=== PATIENT | male | born 1950 | race Caucasian/White ===

== ENCOUNTER → 2024-12-28 09:17 | Outpatient (REF) | payer MEDICARE, OTHER, SELFPAY | LOC: HWRCS 09:17 | PROVIDERS: ATTENDING PHYSICIAN Internal Medicine Cardiovascular Disease; FAMILY PHYSICIAN Internal Medicine | DX: I25.10 Atherosclerotic heart disease of native coronary artery without angina pectoris (principal); R01.1 Cardiac murmur, unspecified | CPT/HCPCS: 93306 ==

== ENCOUNTER 2025-01-27 03:32 | Emergency (ER) | payer MEDICARE, OTHER, SELFPAY ==
[2025-01-27] VITALS (9 sets, daily range): BP systolic 115–130; BP diastolic 74–84; BMI 28.7
[2025-01-27 03:59] LABS: % Basophils 0.3 % (0-2); % Eosinophils 0.3 % (0-6); % Immature Granulocytes 0.6 % (0-0.5); % Lymphocytes 4.4 % (20.5-51.1); % Neutrophils 88.4 % (42.2-75.2); Absolute Immature Granulocytes 0.1 10^3/uL (0-0.05); Absolute Lymphocytes 0.6 10^3/uL (1.2-3.4); Absolute Monocytes 0.9 10^3/uL (0.1-0.6); Absolute Neutrophils 12.8 10^3/uL (1.4-6.5); Hematocrit 50.4 % (39.0-52.0); Mean Corp Hgb Conc. 33.7 g/dL (33.0-37.0); Mean Corpuscular Hgb 31.5 pg (27.0-31.0); Mean Corpuscular Volume 93.5 fL (80.0-94.0); Mean Platelet Volume 10.3 fL (7.4-10.4); Nucleated Red Blood Cells % 0 % (-); Platelet Count 141 10^3/uL (130-400); Red Blood Cell Count 5.39 10^6/uL (4.70-6.10); Red Cell Dist. Width 13.6 % (11.5-14.5); White Blood Cell Count 14.4 10^3/uL (4.8-10.8)
[2025-01-27 04:11] LABS: ALT (SGPT) 42 U/L (0-50); AST (SGOT) 36 U/L (17-59); Albumin 4.8 g/dl (3.5-5.0); Alkaline Phosphatase 71 U/L (38-126); Blood Urea Nitrogen 35 mg/dl (9-20); Calcium 9.5 mg/dl (8.4-10.2); Carbon Dioxide 26 mmol/L (22-30); Chloride 102 mmol/L (98-107); Estimated Creatinine Clearance 66 ml/min; Glucose 180 mg/dl (70-99); Lipase 54 U/L (23-300); Potassium 4.8 mmol/L (3.5-5.1); Sodium 141 mmol/L (135-145); Total Bilirubin 1.7 mg/dl (0.2-1.3); eGFR > 60.00
[2025-01-27 04:14] LABS: COVID-19 Antigen Negative (Negative)
[2025-01-27 04:20] LABS: Troponin I < 0.012 ng/ml
--- NOTE | 2025-01-27 07:17 | ED.GENMED ---
History of Present Illness
General
Chief Complaint: Abdominal Symptoms
Source: patient and spouse
Exam Limitations: none
Time Seen by Provider: 01/27/25 07:05
Nursing documentation reviewed up to this point in time: agreed with
History of Present Illness
History of Present Illness:
74-year-old male with history of HLD, factor V deficiency presents for sudden onset at 11 PM of severe vomiting and retching, diarrhea, according to it was 'so bad he almost passed out.' He also developed severe cramps in his arms and legs to
the point where he could not stand.
Patient states he is feeling better, he still has mild cramps in his legs, he states he vomited numerous times throughout the night and last emesis was about 2 hours ago. His last diarrhea was 2 hours ago. It has been nonbloody.
No known exposures, no recent antibiotic use. No known sick contacts.
He denies fever or chills. Denies chest pain or trouble breathing. He denies abdominal pains.
He feels much better after receiving Zofran by EMS
Past History
Past History
ED Past Medical History: Hypercholesterolemia and Other (Factor V deficiency)
ED Past Surgical History: Orthopedic
Social History
Tobacco: Non-smoker
Alcohol: Occasional
Drug: None
Personal:
Living: with family
Employment: Retired
Review of Systems
Review of Systems
Allergies reviewed?: Yes
All Other Systems: ROS reviewed and negative except as documented in HPI and ROS
Constitutional: Denies fever
Respiratory: Denies trouble breathing
Cardiac: Denies chest pain
ABD/GI: Reports abdominal pain, nausea, vomiting and diarrhea; Denies bloody stools or black stools
: Denies dysuria, frequency or difficulty voiding
Musculoskeletal: Reports other (Cramping in arms and legs)
Skin: Reports no symptoms
Neurological: Reports no symptoms
Phy Exam
Physical Exam
Physical Exam:
GENERAL: No acute distress. A&Ox3.
CONSTITUTIONAL: Afebrile.
EYES: clear, conjunctivae normal
ENMT: moist mucus membranes, Pharynx nl
RESPIRATORY: Regular respirations, nonlabored, lungs clear.
CARDIOVASCULAR: Regular rate and rhythm, no murmurs, no rubs.
GI: Soft, nontender, normal BS
MUSCULOSKELETAL: Moves with ease. Well perfused.
SKIN: Warm, dry, pink
PSYCH: Normal mood and affect. Well kept, interactive and appropriate
NEUROLOGIC: Awake, alert and oriented. No focal neurological deficits
Course
Orders/Labs/Results
Orders:
Orders
01/27/25 03:36
IV Insert/Care/Rem.- Treatment PRN
01/27/25 03:37
Electrocardiogram (*1) Urgent
Reason for Study: Abdominal Pain
EKG- Treatment ONCE
01/27/25 03:43
COVID-19 Antigen Urgent
Source: Nasal Swab
Complete Blood Count/With Diff Urgent
Comprehensive Metabolic Panel Urgent
Lipase Urgent
Troponin I Urgent
Influenza A+B Rapid Molecular Urgent
MCKENZIE Source: Nasal Swab
Specimen Description:
01/27/25 07:26
0.9% Sodium Chloride 1000 ml [Nss] 1,000 ml IV BOLUS
Abnormal Lab Results
01/27/25
03:43
WBC 14.4 H 10^3/uL
(4.8-10.8)
MCH 31.5 H pg
(27.0-31.0)
Abs Immat Gran (auto) 0.1 H 10^3/uL
(0-0.05)
Absolute Neuts (auto) 12.8 H 10^3/uL
(1.4-6.5)
Absolute Lymphs (auto) 0.6 L 10^3/uL
(1.2-3.4)
Absolute Monos (auto) 0.9 H 10^3/uL
(0.1-0.6)
Immature Gran % 0.6 H %
(0-0.5)
Neutrophils % 88.4 H %
(42.2-75.2)
Lymphocytes % 4.4 L %
(20.5-51.1)
BUN 35 H mg/dl
(9-20)
Glucose 180 H mg/dl
(70-99)
Total Bilirubin 1.7 H mg/dl
(0.2-1.3)
01/27/25 03:43
01/27/25 03:43
Vital Signs
Initial and Last Documented VS:
Initial Vital Signs
Temp Pulse Resp BP Pulse Ox
97.8 F 80 16 126/75 99
01/27/25 03:38 01/27/25 03:38 01/27/25 03:38 01/27/25 03:38 01/27/25 03:38
Last Documented Vital Signs
Temp Pulse Resp BP Pulse Ox
97.8 F 78 20 130/76 98
01/27/25 03:38 01/27/25 09:00 01/27/25 09:00 01/27/25 09:00 01/27/25 09:00
MDM/Problems Addressed
Differential Diagnosis Includes:
Viral gastroenteritis, dehydration
MDM/Problems Addressed:
74-year-old male with history of HLD, factor V deficiency presents for sudden onset at 11 PM of severe vomiting and retching, diarrhea, according to it was 'so bad he almost passed out.' He also developed severe cramps in his arms and legs to
the point where he could not stand.
Patient states he is feeling better, he still has mild cramps in his legs, he states he vomited numerous times throughout the night and last emesis was about 2 hours ago. His last diarrhea was 2 hours ago. It has been nonbloody.
No known exposures, no recent antibiotic use. No known sick contacts.
He denies fever or chills. Denies chest pain or trouble breathing. He denies abdominal pains.
He feels much better after receiving Zofran by EMS
EKG NSR
CBC: WBC 14.4 with elevated neutrophils most likely reactive to severe vomiting
CMP: BUN 35 total bili is 1.7 otherwise unremarkable abnormalities most likely due to dehydration and stress of vomiting
Lipase WNL
Troponin WNL
COVID-negative
Flu negative
8:10 a.m.
After IVF's Zofran, pt continues to feel better.
Rx for Zofran sent to his pharmacy
*Critical Care Note
Total Time (30-74mins, 75-104mins- exclusive of procedures): Not Applicable
ED Attending Note
-
Portions of this chart may have been created with voice recognition software.� Occasional wrong word or��sound alike� substitutions may have occurred due to the inherent limitations of voice recognition software.
Discharge Plan
Departure
Patient Disposition: Home (Routine Discharge)
Date of Disposition: 01/27/25
Time of Disposition: 08:55
Patient with high blood pressure during this ER visit?: No
Condition: Good
Discharge Problem:
Gastroenteritis
Instructions: Diarrhea in teens and adults, Viral gastroenteritis in adults, Nausea and Vomiting, Adult (DC)
Prescriptions:
New
ondansetron 4 mg tablet,disintegrating
4 mg PO Q8 4 Days Qty: 12 0RF
No Action
multivitamin Tablet
1 tab PO DAILY
aspirin 81 mg Tablet,Chewable
162 mg PO DAILY
loratadine [Claritin] 10 mg Tablet
10 mg PO DAILY
folic acid 800 mcg Tablet
0.8 mg PO DAILY
rosuvastatin 20 mg Tablet
20 mg PO HS
Vitamin C
2 tab PO DAILY
oxycodone 5 mg tablet
5 mg PO Q6H PRN (Reason: moderate-severe pain) Qty: 30 0RF
Rx Instructions:
1 tab for moderate pain, 2 if severe.
Dx total joint. Ongoing therapy.
ondansetron 4 mg tablet,disintegrating
4 mg PO Q6H PRN (Reason: nausea and vomiting) Qty: 30 0RF
Rx Instructions:
Take 1/2 hour prior to Oxycodone if experiencing recurrent nausea.
mupirocin 2 % ointment
1 applic intranasal BID Qty: 1 0RF
omeprazole 20 mg Tablet,Delayed Release (Dr/Ec)
20 mg PO Q48H
Glucosamine
2 tab PO DAILY
acetaminophen [Acetaminophen Extra Strength] 500 mg tablet
1,000 mg PO Q6H Qty: 30 0RF
Rx Instructions:
DO NOT exceed >4000 mg daily.
enoxaparin [Lovenox] 40 mg/0.4 mL syringe
40 mg SC DAILY Qty: 4 0RF
Rx Instructions:
Start morning of 09/15/22.
Use daily at same time for 2 weeks post-surgery.
docusate sodium [Colace] 100 mg capsule
100 mg PO BID Qty: 30 0RF
senna 8.6 mg capsule
17.2 mg PO BID Qty: 30 0RF
Referrals:
Brian Norwood MD [Family Provider] -
Activity Restrictions/Additional Instructions:
As we discussed, you most likely had a viral gastroenteritis.
I sent a prescription for Zofran to your pharmacy to use if needed for nausea and vomiting
Return here immediately for fever, abdominal pain, blood in your diarrhea or vomit or feeling sicker in any way
Interventions
Interventions:
*Risk Screen - Suicide Last Done: 01/27/25 03:38
*General Assessment Last Done: 01/27/25 03:38
*Neglect/Abuse Screening Last Done: 01/27/25 03:38
ED- Fall Risk Assessment Last Done: 01/27/25 07:52
*ED COVID-19 Vaccine History Last Done: 01/27/25 03:38
*Nursing Disposition Last Done: 01/27/25 09:18
SX-Zynvlo-Vfrvkiohsi Assessment Last Done: 01/27/25 03:42
Discharge Date and Time
Discharge Date/Time: 01/27/25 09:32
Print Language: FIJIAN
[2025-01-27] MEDS: NSS 1000 IV (07:54)
== END 2025-01-27 09:32 | disposition home or self-care (01) ==
LOC: EMR 03:32
PROVIDERS: Emergency Medicine; EMERGENCY PHYSICIAN Emergency Medicine; FAMILY PHYSICIAN Internal Medicine
DX: K52.9 Noninfective gastroenteritis and colitis, unspecified (principal); D68.2 Hereditary deficiency of other clotting factors; E78.00 Pure hypercholesterolemia, unspecified
CPT/HCPCS: 99283; 96360; 80053; 83690; 84484; 85025; 87502; 87811; 93005